=== PATIENT | female | born 1995 | race Hispanic/Latino ===

== ENCOUNTER 2019-01-15 12:48 | Emergency (ER) | payer OTHER, SELFPAY ==
[2019-01-15 13:23] LABS: Bilirubin Negative (Negative); Blood, Urine Negative (Negative); Clarity CLEAR (Clear); Glucose, Urine (Dipstick) Negative (Negative); Leukocyte Large (Negative); Nitrite Negative (Negative); Protein, Urine (Dipstick) Negative (Neg-Trace); Specific Gravity, Urine 1.021 (1.002-1.036)
[2019-01-15 13:28] LABS: #Basophils 0.1 thou/uL (0.0-0.2); #Eosinphils 0.1 thou/uL (0.0-0.7); #Lymphocytes 2.1 thou/uL (1.20-3.40); #Monocytes 0.6 thou/uL (0.11-0.59); #Neutrophils 16.2 thou/uL (1.40-6.50); %Basophils 0.6 % (0.0-1.0); %Eosinophils 0.6 % (0.0-10.0); %Monocytes 3.3 % (0.0-10.0); %Neutrophils 84.6 % (42.0-75.0); Hemoglobin 14.3 g/dL (12.0-16.0); Mean Corpuscular HGB CONC 32.3 g/dL (32.0-36.0); Mean Corpuscular Hemoglobin 29.5 pg (27.0-31.0); Mean Corpuscular Volume 91.3 fL (78.0-98.0); Platelet Count 308 thou/uL (130-400); RBC Distribution Width 11.3 % (11.5-14.5); Red Blood Cell (RBC) Count 4.84 mill/uL (4.20-5.40); White Blood Cell (WBC) Count 19.2 thou/uL (4.8-10.8)
[2019-01-15 13:30] LABS: Pregnancy Test - Urine (BHCG) Negative (Negative); Pregu Control Background? CLEAR/WHITE (CLR/WHITE); Pregu Control Bar Appear? YES (CONTROL BAR); Specific Gravity 1.021 (1.002-1.036)
[2019-01-15 13:38] LABS: Bacteria/HPF Rare-Few HPF (None Seen); Hyaline Casts/LPF 4-6 HYALINE CAST LPF (0-3 Hyaline); RBC/HPF 0-3 HPF (0-3); Squamous Epithelial 0-3 HPF (0-3)
[2019-01-15 14:01] LABS: ALT (SGPT) 20 U/L (8-55); AST (SGOT) 18 U/L (5-34); Albumin 4.4 g/dL (3.5-5.0); Alkaline Phosphatase 82 U/L (40-150); Anion Gap 11 mmol/L (10-20); BUN (Urea Nitrogen) 12 mg/dL (7.0-18.7); Bilirubin, Total 1.7 mg/dL (0.2-1.2); Calc. Creatinine Clearance 0 mL/min (70-130); Calcium 9.3 mg/dL (7.8-10.44); Carbon Dioxide 29 mmol/L (22-29); Chloride 102 mmol/L (98-107); Estimated GFR-MDRD Greater than 90; Globulin 3.1 g/dL (2.4-3.5); Glucose 115 mg/dL (70-105); Lipase 4 U/L (8-78); Potassium 3.7 mmol/L (3.5-5.1); Protein, Total 7.5 g/dL (6.0-8.3); Sodium 138 mmol/L (136-145)
[2019-01-15] MEDS ORDERED: cefTRIAXone\\ROCEPHIN 250 MG VIAL ONE (14:42)
[2019-01-15] MEDS ORDERED: Lidocaine 1% (PF) 30 ML VIAL ONE (14:42)
--- NOTE | 2019-01-15 15:29 | RAD ---
RADIOGRAPH ABDOMEN 1 VIEW: Date: 01/15/19 HISTORY: 23-year-old female with lower abdominal pain. COMPARISON: None. FINDINGS: There is an IUD at midline in the pelvis. Gas in cluster of nondilated small bowel loops in the left upper quadrant, in nondilated transverse and ascending colon, and nondilated stomach and rectum. No e vidence of organomegaly. IMPRESSION: 1. Nonspecific, but nonobstructive bowel gas pattern. 2. Intrauterine device. POS: VINCE
--- NOTE | 2019-01-15 16:00 | ULT ---
ULTRASOUND PELVIC ULTRASOUND TRANSVAGINAL DOPPLER DUPLEX: DATE: 01/15/19 HISTORY: 23-year-old female with pelvic pain. TECHNIQUE: Transabdominal transducer used to evaluate intrapelvic contents using the urinary bladder as an acous tic window. Endovaginal transducer used to visualize intrapelvic contents in greater detail. Color fl ow Doppler and Pulsed Doppler spectral waveform analysis of ovaries. FINDINGS: Uterus: 8 x 4 x 5 cm. Endometrial stripe: 0.3 cm, and contains hyperechoic structure consistent with IUD. Right ovary: 3 x 2 x 2 cm. Left ovary: 3.5 x 2 x 3 cm. Multiple prominent follicles in both ovaries. Blood flow demonstrated in both ovaries by Doppler. No free fluid in the cul-de-sac. IMPRESSION: 1. Intrauterine device. 2. Otherwise negative. MAIKOL Guerrero POS: VIKI
== END 2019-01-15 16:38 | disposition home or self-care (01) ==
LOC: ERS 12:48
DX: N39.0 Urinary tract infection, site not specified (principal)
CPT/HCPCS: 36415; 74018; 76856; 80053; 81003; 81015; 81025; 83690; 85025; 87480; 87491; 87510; 87591; 87660; 96372; J0696; J2001

== ENCOUNTER 2019-01-21 12:29 | Emergency (ER) | payer SELFPAY ==
[2019-01-21] MEDS ORDERED: Lidocaine 1% (PF) 30 ML VIAL ONE (13:49)
[2019-01-21] MEDS ORDERED: Azithromycin 250 MG TAB ONE (13:49)
[2019-01-21] MEDS ORDERED: cefTRIAXone\\ROCEPHIN 250 MG VIAL ONE (13:49)
== END 2019-01-21 14:24 | disposition home or self-care (01) ==
LOC: ERS 12:29
DX: Z20.2 Contact with and (suspected) exposure to infections with a predominantly sexual mode of transmission (principal)
CPT/HCPCS: 96372; J0696; J2001

== ENCOUNTER 2021-05-26 22:53 | Emergency (ER) | payer SELFPAY ==
[2021-05-26 23:30] LABS: Bilirubin Negative (Negative); Blood, Urine 3+ (Negative); Clarity Turbid (Clear); Glucose, Urine (Dipstick) Normal (Negative); Ketone, Urine Negative (Negative); Leukocyte 250 Leu/uL (Negative); Nitrite Negative (Negative); Pregnancy Test - Urine (BHCG) Negative (Negative); Pregu Control Background? CLEAR/WHITE (CLR/WHITE); Pregu Control Bar Appear? YES (CONTROL BAR); Protein, Urine (Dipstick) 100 mg/dL (Neg-Trace); RBC/HPF Greater than 50 HPF (0-3); Specific Gravity 1.023 (1.002-1.036); Specific Gravity, Urine 1.023 (1.002-1.036); Urobilinogen Normal mg/dL (Less than 2); WBC/HPF Greater than 50 HPF (0-3)
[2021-05-26 23:31] LABS: Bacteria/HPF 1+ HPF (None Seen)
[2021-05-27 00:25] LABS: #Basophils 0.1 thou/uL (0.0-0.2); #Eosinphils 0.3 thou/uL (0.0-0.7); #Lymphocytes 3.4 thou/uL (1.20-3.40); #Monocytes 0.7 thou/uL (0.11-0.59); #Neutrophils 10.9 thou/uL (1.40-6.50); %Basophils 0.7 % (0.0-1.0); %Eosinophils 1.6 % (0.0-10.0); %Lymphocytes 22.2 % (21.0-51.0); %Monocytes 4.4 % (0.0-10.0); %Neutrophils 71.1 % (42.0-75.0); Hemoglobin 15.2 g/dL (12.0-16.0); Mean Corpuscular HGB CONC 33.7 g/dL (32.0-36.0); Mean Corpuscular Volume 94.9 fL (78.0-98.0); Mean Platelet Volume 8.2 fL (7.4-10.4); Platelet Count 272 thou/uL (130-400); RBC Distribution Width 11.5 % (11.5-14.5); Red Blood Cell (RBC) Count 4.76 mill/uL (4.20-5.40); White Blood Cell (WBC) Count 15.3 thou/uL (4.8-10.8)
[2021-05-27 00:45] LABS: Anion Gap 12 mmol/L (10-20); BUN (Urea Nitrogen) 11 mg/dL (7.0-18.7); Calc. Creatinine Clearance 0 mL/min (70-130); Calcium 9.5 mg/dL (7.8-10.44); Carbon Dioxide 26 mmol/L (22-29); Chloride 102 mmol/L (98-107); Glucose 132 mg/dL (70-105); Potassium 3.6 mmol/L (3.5-5.1); Sodium 136 mmol/L (136-145)
== END 2021-05-27 02:19 | disposition home or self-care (01) ==
LOC: ERS 22:53
DX: N39.0 Urinary tract infection, site not specified (principal); F17.210 Nicotine dependence, cigarettes, uncomplicated
CPT/HCPCS: 36415; 80048; 81003; 81015; 81025; 85025; 87077; 87086; 87186; 99284

== ENCOUNTER 2023-03-13 14:28 | Outpatient (CLI) | payer OTHER | END 2023-03-13 14:29 | disposition home or self-care (01) | LOC: RAD 14:28 | PROVIDERS: ATTEND Family Medicine | DX: M25.551 Pain in right hip (principal) ==

== ENCOUNTER 2024-11-10 13:24 | Emergency (ER) | payer OTHER, SELFPAY ==
[2024-11-10] MEDS ORDERED: Ketorolac Tromethamine 30 MG (1 mL) VIAL ONE (14:30)
== END 2024-11-10 16:38 | disposition home or self-care (01) ==
LOC: ERS 13:24
DX: J06.9 Acute upper respiratory infection, unspecified (principal); F17.210 Nicotine dependence, cigarettes, uncomplicated
CPT/HCPCS: 87428; 96372; 99283; J1885